=== PATIENT | male | born 1990 | race Native Hawaiian/Other Pacific Islander ===

== ENCOUNTER 2016-12-11 11:21 | Inpatient (IN) | payer SELFPAY ==
[2016-12-11 11:42] VITALS: BMI 24.8
[2016-12-11] MEDS ORDERED: HYDROmorphone 0.5 mg/0.5 ml ISec IVP STA (13:23)
--- NOTE | 2016-12-11 13:59 | RAD ---
HISTORY: clearance COMPARISON: No prior. FINDINGS: LUNGS: No active pulmonary disease. PLEURA: No significant pleural effusion identified, no pneumothorax apparent. CARDIOVASCULAR: Normal. OSSEOUS STRUCTURES: A subtle S-shaped scoliosis of these upper thoracic spine is appreciated. VISUALIZED UPPER ABDOMEN: Normal. OTHER FINDINGS: None. IMPRESSION: No acute cardiopulmonary disease identified.
[2016-12-11 14:10] LABS: BASO # 0.1 K/uL (0.0-0.2); BASO % 0.8 % (0.0-2.0); EOS # 0.3 K/uL (0.0-0.7); EOS % 3.3 % (0.0-4.0); HEMATOCRIT 54.3 % (35.0-51.0); LYMPH # 3.7 K/uL (1.0-4.3); LYMPH % 36.3 % (20.0-40.0); MEAN CELL VOLUME 86.5 fl (80.0-94.0); MEAN CORPUSCULAR HEMOGLOBIN 28.9 pg (27.0-31.0); MEAN CORPUSCULAR HGB CONC 33.4 g/dL (33.0-37.0); MEAN PLATELET VOLUME 9.7 fl (7.2-11.7); MONO # 0.8 K/uL (0.0-0.8); MONO % 7.3 % (0.0-10.0); NEUT # 5.3 K/uL (1.8-7.0); NEUT % 52.3 % (50.0-75.0); NRBC % 0.2 % (0.0-0.0); RED CELL DISTRIBUTION WIDTH 12.9 % (11.5-14.5); WHITE BLOOD COUNT 10.2 K/uL (4.8-10.8)
[2016-12-11] MEDS ORDERED: HYDROmorphone 0.5 mg/0.5 ml ISec ONE (14:13)
[2016-12-11 14:20] LABS: ALB/GLOB RATIO 1.4 (1.0-2.1); ALKALINE PHOSPHATASE 78 U/L (38-126); ALT/SGPT 51 U/L (21-72); AST/SGOT 31 U/L (17-59); BILIRUBIN,TOTAL 0.7 mg/dl (0.2-1.3); BLOOD UREA NITROGEN 15 mg/dl (9-20); CALCIUM 10.1 mg/dL (8.4-10.2); CARBON DIOXIDE 24 mmol/L (22-30); CHLORIDE 102 mmol/L (98-107); GFR AFRICAN-AMERICAN > 60; GLUCOSE,RANDOM 94 mg/dL (75-110); POTASSIUM 4.4 MMOL/L (3.6-5.0); SODIUM 144 mmol/l (132-148); TOTAL PROTEIN 8.7 G/DL (6.3-8.2)
[2016-12-11 14:27] LABS: PARTIAL THROMBOPLASTIN TIME 31.8 Seconds (25.6-37.1)
--- NOTE | 2016-12-11 14:34 | ED PDOC ---
HPI: General Adult Time Seen by Provider: 12/11/16 12:20 Chief Complaint (Nursing): Back Pain History Per: Patient Additional Complaint(s): Pt. states for the past 8 months he's had lower back pain radiating down the R leg. Reports he had a "discectomy" done by a neurosurgeon in [facility]. States that he's had multiple epidurals and had gone through a round of physical therapy without any relief. States that he as seen by Dr. Linn 2 weeks ago who told him he may need another surgery if pain persists. Yesterday he was unable to withstand the pain prompting visit today. Denies trauma, hematuria, incontinence, saddle paresthesias, N/V/D, fever. Past Medical History Reviewed: Historical Data, Nursing Documentation, Vital Signs Vital Signs: Last Vital Signs Temp 97.6 F 12/11/16 11:41 Pulse 77 12/11/16 11:41 Resp 20 12/11/16 11:41 BP 117/64 12/11/16 11:41 Pulse Ox 96 12/11/16 11:41 - Surgical History Surgical History: Back Surgery (dissectomy) - Family History Family History: States: No Known Family Hx - Home Medications Home Medications: Ambulatory Orders Medication Instructions Recorded Acetaminophen [Tylenol Extra 1,000 mg PO Q8H PRN 12/11/16 Strength] - Allergies Allergies/Adverse Reactions: Allergies Allergy/AdvReac Type Severity Reaction Status Date / Time No Known Allergies Allergy Verified 12/11/16 11:57 Review of Systems ROS Statement: Except As Marked, All Systems Reviewed And Found Negative Musculoskeletal: Positive for: Back Pain Physical Exam - Reviewed Nursing Documentation Reviewed: Yes Vital Signs Reviewed: Yes - Physical Exam Appears: Positive for: Well, Non-toxic, No Acute Distress Head Exam: Positive for: ATRAUMATIC, NORMAL INSPECTION, NORMOCEPHALIC Skin: Positive for: Normal Color, Warm, DRY Eye Exam: Positive for: EOMI, Normal appearance, PERRL ENT: Positive for: Normal ENT Inspection Neck: Positive for: Normal, Painless ROM Cardiovascular/Chest: Positive for: Regular Rate, Rhythm Respiratory: Positive for: CNT, Normal Breath Sounds Gastrointestinal/Abdominal: Positive for: Normal Exam, Bowel Sounds, Soft Back: Positive for: Normal Inspection. Negative for: L CVA Tenderness, R CVA Tenderness, Muscle Spasm Extremity: Positive for: Normal ROM Neurologic/Psych: Positive for: Alert, Oriented - Laboratory Results Result Diagrams: 12/11/16 13:55 - ECG O2 Sat by Pulse Oximetry: 96 - Progress ED Course And Treament: Labs ordered. Dialudid 0.5mg IV, zofran 4mg IV ordered. Call placed to Dr. Linn's office and arrangements made for admission. Case d/w Dr. Venegas and arrangements made for admission. Disposition - Clinical Impression Clinical Impression: Intractable back pain - Patient ED Disposition Is Patient to be Admitted: Yes - Disposition Disposition Time: 13:23 Condition: FAIR - Pt Status Changed To: Hospital Disposition Of: Inpatient - Admit Certification Admit to Inpatient:: After my assessment, the patient will require hospitalization for at least two midnights. This is because of the severity of symptoms shown, intensity of services needed, and/or the medical risk in this patient being treated as an outpatient.
[2016-12-12 06:11] LABS: RBC URINE < 1 /hpf (0-3); URINE BILIRUBIN NEGATIVE (NEGATIVE); URINE BLOOD NEGATIVE (NEGATIVE); URINE COLOR YELLOW (YELLOW); URINE GLUCOSE (UA) NEG (Normal); URINE KETONE NEGATIVE (NEGATIVE); URINE LEUKOCYTE ESTERASE NEG Leu/uL (Negative); URINE PROTEIN NEGATIVE (NEGATIVE); URINE UROBILINOGEN 0.2-1.0 mg/dL (0.2-1.0); WBC URINE 1 /hpf (0-5)
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
[2016-12-12] MEDS ORDERED: Thrombin Topical 5,000 IU Spray Kit ONE (07:16)
[2016-12-12] MEDS ORDERED: Absorbable Gelatin Sponge Size 100 ONE (07:16)
[2016-12-12] MEDS ORDERED: Lidocaine 2% w Epi 1:100,000 Inj IJ ONE (07:16)
[2016-12-12] MEDS ORDERED: Bupivacaine HCl 0.25% PF (30 ml) Inj ONE (07:17)
--- NOTE | 2016-12-12 07:47 | CP.PCM.CON ---
History of Present Illness - History of Present Illness History of Present Illness: Dr. Linn asked to see this 25 yo male admitted with intractable LBP radiating LLE with weakness and difficulty ambulating,no relief with pain meds,onset <1 year ago,holds on when ambulating,outpt images reviewed by Dr. Linn showing Lumbar spondylosis with HNP L5-S1 with severe canal and foraminal stenosis, currently unable to work,pt has failed conservative management,surgical and non surgical options d/w pt,due to worsening symptoms pt wishes to proceed with a Left Decompressive Laminectomy L5-S1. 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[employer] Alcohol: Social Drugs: Denies Home Situation {Lives}: With Family Domestic Violence: Negative - CARDIAC Hx Cardiac Disorders: No - PULMONARY Hx Respiratory Disorders: No Other/Comment: pt smokes and declined infomation regarding smoking cessation information - NEUROLOGICAL Hx Neurological Disorder: No - HEENT Hx HEENT Problems: No - RENAL Hx Chronic Kidney Disease: No - ENDOCRINE/METABOLIC Hx Endocrine Disorders: No - HEMATOLOGICAL/ONCOLOGICAL Hx Blood Disorders: No Hx AIDS: No Hx Human Immunodeficiency Virus (HIV): No - INTEGUMENTARY Hx Dermatological Problems: No Other/Comment: tattoos on both upper arms. left ear pierced - MUSCULOSKELETAL/RHEUMATOLOGICAL Hx Back Pain: Yes (low back) Hx Falls: No - GASTROINTESTINAL Hx Gastrointestinal Disorders: No - GENITOURINARY/GYNECOLOGICAL Hx Genitourinary Disorders: No - PSYCHIATRIC Hx Psychophysiologic Disorder: No Hx Substance Use: No - SURGICAL HISTORY Hx Surgeries: Yes Other/Comment: disectomy 3 month ago [facility] - ANESTHESIA Hx Anesthesia: Yes Hx Anesthesia Reactions: No Meds Allergies/Adverse Reactions: Allergies Allergy/AdvReac Type Severity Reaction Status Date / Time No Known Allergies Allergy Verified 12/11/16 11:57 Physical Exam - Constitutional Appears: Well, Non-toxic, No Acute Distress - Head Exam Head Exam: ATRAUMATIC, NORMAL INSPECTION, NORMOCEPHALIC - Eye Exam Eye Exam: EOMI, Normal appearance, PERRL Pupil Exam: NORMAL ACCOMODATION - ENT Exam ENT Exam: Mucous Membranes Moist - Neck Exam Neck exam: Positive for: Normal Inspection - Respiratory Exam Respiratory Exam: Clear to Auscultation Bilateral - Cardiovascular Exam Cardiovascular Exam: REGULAR RHYTHM, +S1, +S2 - GI/Abdominal Exam GI & Abdominal Exam: Normal Bowel Sounds - Rectal Exam Rectal Exam: Deferred - Extremities Exam Extremities exam: Positive for: normal capillary refill, pedal pulses present - Back Exam Back exam: vertebral tenderness - Neurological Exam Neurological exam: Alert, Oriented x3 Additional comments: DOYLE x 4 antigravity with LLE weakness,SLR at 40 degree's,decreased sensation, neg babinski or pelvic paresthesias - Psychiatric Exam Psychiatric exam: Normal Affect, Normal Mood - Skin Skin Exam: Dry, Intact Results - Vital Signs Recent Vital Signs: Last Vital Signs Temp 98.1 F 12/12/16 05:58 Pulse 81 12/12/16 05:58 Resp 19 12/12/16 05:58 BP 97/53 L 12/12/16 05:58 Pulse Ox 97 12/12/16 05:58 - Labs Result Diagrams: 12/11/16 13:55 12/11/16 13:55 Labs: Laboratory Results - last 24 hr 12/11/16 12/11/16 12/11/16 06:03 13:55 13:55 WBC 10.2 RBC 6.27 H Hgb 18.1 H Hct 54.3 H MCV 86.5 MCH 28.9 MCHC 33.4 RDW 12.9 Plt Count 168 MPV 9.7 Neut % (Auto) 52.3 Lymph % (Auto) 36.3 [place] % (Auto) 7.3 Eos % (Auto) 3.3 Baso % (Auto) 0.8 Neut # 5.3 Lymph # 3.7 [place] # 0.8 Eos # 0.3 Baso # 0.1 PT INR APTT Sodium 144 Potassium 4.4 Chloride 102 Carbon Dioxide 24 Anion Gap 23 H BUN 15 Creatinine 1.2 Est GFR ( Amer) > 60 Est GFR (Non-Af Amer) > 60 Random Glucose 94 Calcium 10.1 Total Bilirubin 0.7 AST 31 ALT 51 Alkaline Phosphatase 78 Total Protein 8.7 H Albumin 5.0 Globulin 3.6 Albumin/Globulin Ratio 1.4 Urine Color Yellow Urine Clarity Clear Urine pH 7.0 Ur Specific [place] 1.017 Urine Protein Negative Urine Glucose (UA) Neg Urine Ketones Negative Urine Blood Negative Urine Nitrate Negative Urine Bilirubin Negative Urine Urobilinogen 0.2-1.0 Ur Leukocyte Esterase Neg Urine RBC (Auto) < 1 Urine Microscopic WBC 1 Blood Type Blood Type Confirm Antibody Screen BBK History Checked 12/11/16 12/11/16 12/11/16 13:55 13:55 15:00 WBC RBC Hgb Hct MCV MCH MCHC RDW Plt Count MPV Neut % (Auto) Lymph % (Auto) [place] % (Auto) Eos % (Auto) Baso % (Auto) Neut # Lymph # [place] # Eos # Baso # PT 11.2 INR 1.1 APTT 31.8 Sodium Potassium Chloride Carbon Dioxide Anion Gap BUN Creatinine Est GFR ( Amer) Est GFR (Non-Af Amer) Random Glucose Calcium Total Bilirubin AST ALT Alkaline Phosphatase Total Protein Albumin Globulin Albumin/Globulin Ratio Urine Color Urine Clarity Urine pH Ur Specific [place] Urine Protein Urine Glucose (UA) Urine Ketones Urine Blood Urine Nitrate Urine Bilirubin Urine Urobilinogen Ur Leukocyte Esterase Urine RBC (Auto) Urine Microscopic WBC Blood Type B POSITIVE Blood Type Confirm B POSITIVE Antibody Screen Negative BBK History Checked No verified bt Assessment & Plan - Assessment and Plan (Free Text) Assessment: 25 yo male with Lumbar Spondylosis and HNP L5-S1 with LLE radiculapathy Plan: pt to have a proposed decompressive laminectomy left L5-S1,risks and benefits of surgery d/w pt,expressed understanding and wishes to proceed.
[2016-12-12] MEDS ORDERED: Midazolam 2 MG/2 ML VIAL ONE (07:57)
[2016-12-12] MEDS ORDERED: Propofol 10 mg/ml Inj (20 ML) ONE (07:57)
[2016-12-12] MEDS ORDERED: Succinylcholine 200 mg/10 ml Inj IV ONE (07:58)
[2016-12-12] MEDS ORDERED: Rocuronium 10 mg/ml (5 ml) ONE (07:58)
[2016-12-12] MEDS ORDERED: Lidocaine 4% (Laryng-O-Jet) Kit MM ONE (07:58)
[2016-12-12] MEDS ORDERED: HEMOSTATIC MATRIX 10 ML DIS.NEEDLE TOP ONE (09:30)
[2016-12-12] MEDS ORDERED: Neostigmine Methylsulfate 3mg/3ml Syringe IV ONE (09:39)
[2016-12-12] MEDS ORDERED: Lactated Ringer's 1,000 ML IV ONE ×2 (10:01→10:02)
[2016-12-12] MEDS ORDERED: Lactated Ringer's 1,000 ML IV PRN (10:02)
[2016-12-12] MEDS ORDERED: HYDROmorphone 0.5 mg/0.5 ml ISec IVP PRN (10:06)
--- NOTE | 2016-12-12 10:51 | CARD ---
APPROVED REPORT EKG Measurement Heart [id number] <Conclusion> Normal sinus rhythm Normal ECG
--- NOTE | 2016-12-12 17:02 | RAD ---
PROCEDURE: Intraoperative Fluoroscopy. HISTORY: LUMBAR LAMINECTOMY FINDINGS: Fluoroscopic assistance was provided for lumbar laminectomy. Total fluoroscopic time (continuous mode) utilized during the procedure: 3.1 seconds. Submitted images from the current procedure: 1.0. Please
[2016-12-12] MEDS: Sodium Chloride 0.9% 1,000 ML IV SCH (17:30)
--- NOTE | 2016-12-12 19:14 | OP ---
PROCEDURE DATE: 12/12/2016 PREOPERATIVE DIAGNOSIS: Herniated lumbar disk at L5-S1. POSTOPERATIVE DIAGNOSIS: Herniated lumbar disk at L5-S1. PROCEDURE: Left L5-S1 hemilaminotomy, medial facetectomy, decompression of the nerve root, foraminotomy, fluoroscopy had been used for the procedure, microscope had been used for the procedure . SURGEON: Mark Linn MD [employer] [employer] SUPERVISOR: Tomasa Thorpe, who is a physician therapist's assistant. She helped me perform the surgery. She stayed throughout the case from the beginning to the end. DESCRIPTION OF PROCEDURE: The patient was brought to the operating room, anesthetized with general endotracheal anesthesia, placed in a prone position on a Curry frame. Care was taken to protect all the pressure points. Back of the lumbar area thoroughly prepped and draped in sterile manner after marking for a skin incision for a lumbar laminectomy at . After prepping and draping the area, skin has been incised. Bleeding skins had been controlled with bipolar regional construction manager. After using a Bovie regional construction manager, paraspinal muscles had been detached, attachments of spinous process, lamina of L5-S1 on the left side. Tracey retractors had been applied to alter the facet joint of L5-S1 and fluoroscopy has been used in order to confirm this level. Under microscopic examination, the lamina of L5-S1, medial part of the facets of L5-S1 have been drilled. Drilling was continued until the top and bottom of the ligamentum flavum was seen. Drilling was also continued on the medial part of the facets until the turn of the ligamentum was seen. Once this has been done, thinned out the lamina, medial part of the facets and ligamentum flavum has been removed and foraminotomy has been performed and disk space has been examined. There was herniated disk noted; however, there was no extrusion noted, hence no further diskectomy has been performed as the nerve root already had been decompressed. Hemostasis was best achieved. Fascia across the interspinous ligaments, spinous process with 1-Vicryl, subcutaneous tissue with 3-Vicryl. Skin has been closed with intradermal 3 Vicryl stitches. The patient tolerated the procedure. After procedure, mobilized to the recovery room in stabilized condition. Mark Linn MD
[2016-12-13] MEDS: Sodium Chloride 0.9% 1,000 ML IV SCH (00:50)
[2016-12-13] MEDS: Oxycodone/Acetaminophen 5/325 mg Tab PO PRN ×4 (05:18→22:28)
[2016-12-13 06:32] LABS: BLOOD UREA NITROGEN 18 mg/dl (9-20); CALCIUM 9.2 mg/dL (8.4-10.2); CARBON DIOXIDE 25 mmol/L (22-30); CHLORIDE 105 mmol/L (98-107); GFR AFRICAN-AMERICAN > 60; GLUCOSE,RANDOM 109 mg/dL (75-110); POTASSIUM 4.3 MMOL/L (3.6-5.0); SODIUM 143 mmol/l (132-148)
[2016-12-13 06:33] LABS: BASO % 0.1 % (0.0-2.0); HEMATOCRIT 49.8 % (35.0-51.0); LYMPH # 1.7 K/uL (1.0-4.3); LYMPH % 9.6 % (20.0-40.0); MEAN CELL VOLUME 87.1 fl (80.0-94.0); MEAN CORPUSCULAR HEMOGLOBIN 28.2 pg (27.0-31.0); MEAN CORPUSCULAR HGB CONC 32.4 g/dL (33.0-37.0); MEAN PLATELET VOLUME 9.6 fl (7.2-11.7); MONO % 5.7 % (0.0-10.0); NEUT # 15.4 K/uL (1.8-7.0); NEUT % 84.6 % (50.0-75.0); PLATELET COUNT 159 K/uL (130-400); RED CELL DISTRIBUTION WIDTH 13.2 % (11.5-14.5); WHITE BLOOD COUNT 18.2 K/uL (4.8-10.8)
[2016-12-13 08:23] LABS: NEUTROPHIL 85 % (42-75); TOTAL CELLS COUNTED 100
--- NOTE | 2016-12-13 11:46 | CP.PCM.PN ---
Subjective - Date & Time of Evaluation Date of Evaluation: 12/13/16 Time of Evaluation: 11:44 - Subjective Subjective: pt seen and examined at bedside this morning with attending. POD#1 Pt had a hypotensive without reflex tachycardia episode this morning when he felt lightheaded and dizzy. Pt was put back in bed and started on IV fluids. Pt reports feeling better after. No other complaints today. +BM today. Pain controlled. OOB/ambulated before hypotensive episode without difficulty. Objective - Vital Signs/Intake and Output Vital Signs (last 24 hours): Temp Pulse Resp BP Pulse Ox 97.7 F 60 18 103/61 98 12/13/16 09:00 12/13/16 09:00 12/13/16 09:00 12/13/16 09:00 12/13/16 09:00 - Medications Medications: Current Medications Cyclobenzaprine HCl (Flexeril) 5 mg PO TID PRN PRN Reason: Muscle spasm Lactated Ringer's (Lactated Ringer's) 1,000 mls @ 0 mls/hr IV .Q0M PRN; As Directed PRN Reason: Hypotension Morphine Sulfate (Morphine) 2 mg IVP Q4 PRN PRN Reason: Pain, severe (8-10) Last Admin: 12/13/16 00:45 Dose: 2 mg Oxycodone/Acetaminophen (Percocet 5/325 Mg Tab) 2 tab PO Q4 PRN PRN Reason: Pain, moderate (4-7) Stop: 12/15/16 10:57 Last Admin: 12/13/16 05:18 Dose: 2 tab - Labs Labs: 12/13/16 05:30 12/13/16 05:30 PT 11.2 Seconds (9.8-13.1) 12/11/16 13:55 INR 1.1 (0.9-1.2) 12/11/16 13:55 APTT 31.8 Seconds (25.6-37.1) 12/11/16 13:55 - Constitutional Appears: Non-toxic, No Acute Distress - Eye Exam Eye Exam: EOMI Pupil Exam: PERRL - ENT Exam ENT Exam: Mucous Membranes Moist - Respiratory Exam Respiratory Exam: Clear to Ausculation Bilateral, NORMAL BREATHING PATTERN. absent: Rales, Rhonchi, Wheezes - Cardiovascular Exam Cardiovascular Exam: REGULAR RHYTHM, RRR, +S1, +S2. absent: JVD, Rubs - GI/Abdominal Exam GI & Abdominal Exam: Soft, Normal Bowel Sounds. absent: Tenderness - Extremities Exam Extremities Exam: Full ROM, Normal Inspection. absent: Pedal Edema - Neurological Exam Neurological Exam: Alert, Awake, CN II-XII Intact, Oriented x3 Assessment and Plan (1) Intractable back pain Assessment & Plan: S/P laminectomy POD#1 c/w with pain management IV Fluids, NS @ 150ml/s hour to return to regular BP Regular diet will reevalaute in the afternoon. Status: Acute
--- NOTE | 2016-12-13 12:57 | CP.PCM.PN ---
Subjective - Date & Time of Evaluation Date of Evaluation: 12/13/16 Time of Evaluation: 12:55 - Subjective Subjective: Patient states he had an epidsode of dizziness this morning after he was up and walking around. He says he has not had any more dizziness since that time. He denies numbness/tingling at this time. Denies headache/CP/SOB/n/v. Tolerating PO. Back pain is controlled with medications. no new complaints Objective - Vital Signs/Intake and Output Vital Signs (last 24 hours): Temp Pulse Resp BP Pulse Ox 97.9 F 57 L 18 100/58 L 94 L 12/13/16 12:00 12/13/16 12:00 12/13/16 12:00 12/13/16 12:00 12/13/16 12:00 - Medications Medications: Current Medications Cyclobenzaprine HCl (Flexeril) 5 mg PO TID PRN PRN Reason: Muscle spasm Lactated Ringer's (Lactated Ringer's) 1,000 mls @ 0 mls/hr IV .Q0M PRN; As Directed PRN Reason: Hypotension Morphine Sulfate (Morphine) 2 mg IVP Q4 PRN PRN Reason: Pain, severe (8-10) Last Admin: 12/13/16 00:45 Dose: 2 mg Oxycodone/Acetaminophen (Percocet 5/325 Mg Tab) 2 tab PO Q4 PRN PRN Reason: Pain, moderate (4-7) Stop: 12/15/16 10:57 Last Admin: 12/13/16 05:18 Dose: 2 tab - Labs Labs: 12/13/16 05:30 12/13/16 05:30 PT 11.2 Seconds (9.8-13.1) 12/11/16 13:55 INR 1.1 (0.9-1.2) 12/11/16 13:55 APTT 31.8 Seconds (25.6-37.1) 12/11/16 13:55 - Constitutional Appears: Well, No Acute Distress - Extremities Exam Additional comments: +DP pulses calves soft NT neg homans - Back Exam Back Exam: NORMAL INSPECTION, tenderness Additional comments: no drainage, no swelling, dressing intact Sensation intact and equal to BLE - Neurological Exam Neurological Exam: Alert, Awake, CN II-XII Intact, Oriented x3 Neuro motor strength exam: Left Lower Extremity: 5, Right Lower Extremity: 5 Assessment and Plan (1) Lumbar disc herniation with radiculopathy Assessment & Plan: POD# 1 s/p left L5S1 hemilaminectomy, medial facetectomy, nerve root decompression -if patient remains normostatic, then stable for d/c home today -pain medication, encourage OOB/ambulation -d/w Dr. Linn, agrees with above Status: Acute
[2016-12-13] MEDS ORDERED: Lactulose 10 gm/15 ml Syrup PO PRN (14:15)
[2016-12-14] MEDS: Oxycodone/Acetaminophen 5/325 mg Tab PO PRN ×2 (04:37→10:39)
[2016-12-14 05:30] LABS: MEAN CELL VOLUME 87.6 fl (80.0-94.0); MEAN CORPUSCULAR HEMOGLOBIN 28.7 pg (27.0-31.0); MEAN CORPUSCULAR HGB CONC 32.8 g/dL (33.0-37.0); RED CELL DISTRIBUTION WIDTH 13.2 % (11.5-14.5); WHITE BLOOD COUNT 12.1 K/uL (4.8-10.8)
[2016-12-14 07:55] VITALS: PULSE 65; RESP 18
[2016-12-14 12:08] VITALS: BP 115/76; TEMP 97.7; O2SAT 98
== END 2016-12-14 14:44 | disposition home or self-care (01) | DRG 520 ==
LOC: H.ER 11:21 → H.ERHOLD 14:59 → H.PEDS 16:58 → H.TEL 12-12 12:30
PROVIDERS: ADMIT Family Medicine; ATTEND Family Medicine
PROC: 0SB20ZZ Excision of Lumbar Vertebral Disc, Open Approach (ICD-10-PCS; principal; 2016-12-12 09:45)
DX: M51.16 Intervertebral disc disorders with radiculopathy, lumbar region (principal); M47.26 Other spondylosis with radiculopathy, lumbar region; M51.27 Other intervertebral disc displacement, lumbosacral region; I95.81 Postprocedural hypotension; F17.210 Nicotine dependence, cigarettes, uncomplicated